=== PATIENT | male | born 1980 | race Caucasian/White ===

== ENCOUNTER 2018-10-09 02:44 | Emergency (ER) | payer OTHER ==
--- NOTE | 2018-10-09 03:08 | EDM.PDOC ---
ED HPI GENERAL MEDICAL PROBLEM - General Chief Complaint: Fever Stated Complaint: FEVER Time Seen by Provider: 10/09/18 02:58 - History of Present Illness INITIAL COMMENTS - FREE TEXT/NARRATIVE: 38-year-old male presents emergency room with a fever. Patient was diagnosed with pneumonia 4 days ago he was started on Levaquin however with some concerns about tendon rupture he decided he did not want to take it. He was changed over to cefuroxime Axetil he is getting better for the most part however he had a fever earlier this evening. Overall though he does feel better. They asked if they should go back on to the Levaquin I advised not however he did mention that the downside being on the cefuroxime by itself is they don't have atypical coverage and since he is improving I would keep him on the cefuroxime but add something to cover the atypicals such as doxycycline. He is using his inhaler 2 puffs every 4 hours while awake and this also seems to be helping Leg Pain Score (Numeric/FACES): 4 - Related Data Allergies Allergy/AdvReac Type Severity Reaction Status Date / Time No Known Allergies Allergy Verified 10/09/18 02:59 Home Meds: Home Meds Albuterol [Ventolin HFA] 8 gm .XX Q4H #1 inhaler 10/09/18 [Rx] Doxycycline [Vibramycin] 100 mg PO Q12H #13 tab 10/09/18 [Rx] ED ROS GENERAL - Review of Systems Review Of Systems: See Below Constitutional: Reports: Fever. Denies: Chills, Night Sweats HEENT: Reports: No Symptoms Respiratory: Reports: Cough, Sputum. Denies: Shortness of Breath, Wheezing, Hemoptysis Cardiovascular: Denies: No Symptoms, Chest Pain Endocrine: Reports: No Symptoms GI/Abdominal: Reports: No Symptoms Musculoskeletal: Reports: No Symptoms Neurological: Reports: No Symptoms ED EXAM, GENERAL - Physical Exam Exam: See Below General Appearance: Alert, No Apparent Distress Head: Atraumatic, Normocephalic Neck: Normal Inspection, Supple, Non-Tender, Full Range of Motion Respiratory/Chest: No Respiratory Distress, Other (He has a few bibasilar crackles deep breathing makes his cough worse). No: Decreased Breath Sounds Cardiovascular: Regular Rate, Rhythm, No Edema, No Murmur Course - Vital Signs Last Recorded V/S: Last Vital Signs Temp 37.0 C 10/09/18 02:52 Pulse 97 10/09/18 02:52 Resp 20 10/09/18 02:52 BP 120/76 10/09/18 02:52 Pulse Ox 97 10/09/18 02:52 - Orders/Labs/Meds Meds: Medications Discontinued Medications Generic Name Dose Route Start Last Admin Trade Name [place] PRN Reason Stop Dose Admin Doxycycline Hyclate 100 mg 10/09/18 03:19 10/09/18 03:25 Vibramycin PO 10/09/18 03:20 100 mg ONETIME ONE Administration - Re-Assessments/Exams Free Text/Narrative Re-Assessment/Exam: 10/09/18 03:33 Stress treatment options with her staying on the cefuroxime versus restarting the Levaquin I recommended stayed on the cefuroxime as he seems to be improving he's been on this for 3 days however I did advise starting coverage for an atypical and 7 days of doxycycline have been provided. He was given his first dose out of the emergency room and then a prescription for 13 more. He is given a refill of his albuterol inhaler Departure - Departure Time of Disposition: 03:20 Disposition: Home, Self-Care 01 Clinical Impression: Pneumonia - Discharge Information Prescriptions: Albuterol [Ventolin HFA] 8 gm .XX Q4H #1 inhaler Doxycycline [Vibramycin] 100 mg PO Q12H #13 tab Instructions: Community-Acquired Pneumonia, Adult, [id number] Referrals: PCP,Not In Area [Primary Care Provider] - Forms: ED Department Discharge Additional Instructions: Return to the emergency room with any questions problems worsening symptoms. Finish the the current antibiotics, cefuroxime Axetil twice daily until gone. Start the doxycycline one twice daily until gone. Use your inhaler 2 puffs every 4 hours while awake I've given him a refill for this if more is needed
[2018-10-09] MEDS ORDERED: Doxycycline 100 MG Cap PO ONE (03:19)
== END 2018-10-09 03:37 | disposition home or self-care (01) ==
LOC: JD.ED 02:44
DX: J18.9 Pneumonia, unspecified organism (principal)
CPT/HCPCS: 99283; A9270